=== PATIENT | male | born 1945 | race Caucasian/White ===

== ENCOUNTER 2017-11-29 22:01 | Inpatient (IN) | payer MEDICARE, OTHER ==
[~2017-11-29] VITALS: Ht 172.7 cm; Wt 87.2 kg
[~2017-11-29 22:01] MED LIST: ALLER-TEC10 MG PO; ASPIRIN EC325 MG PO; DAILY MULTIPLE1 EACH PO; FISH OIL 1,2001 EACH PO; LISINOPRIL2.5 MG PO; PERCOCET 7.5-31 EACH PO; TRIAMCINOLONE A15 GM TOP; VITAMIN D2000 UNI1 PO; VITAMIN K240 MCG PO; ZYRTEC10 M3 PO
[2017-11-29] MEDS ORDERED: MAGNESIUM400 M1 PO (22:17)
--- NOTE | 2017-11-30 01:07 | NUR ---
PT ADMITTED TO ROOM 115 FROM ED. HAS HAD MULT LOOSE RED STOOLS LIZ, COMPLAINS OF SOME CRAMPING, DENIES NAUSEA OR VOMITING. IS ON ROOM AIR, SBA WITH AMBULATION. HAS HAD ONE LOOSE STOOL SINCE ADMISSION, DARK-BLACK RED, LOOSE. VOIDING WITHOUT DIFFICULTY. DENIES DIZZINESS WHEN UP. PT EDUCATED TO USE CALL LIGHT TO GET UP. EDUCATED TO BED CONTROLS WELL. PT IS AWARE HE IS NPO.
--- NOTE | 2017-11-30 02:00 | NUR ---
PATIENT REQUEST ASSISTANCE TO GET UP TO THE BATHROOM. RN ASSISTED WITH IV POLE, PATIENT AMBULATED STEADILY WITHOUT ASSISTANCE. PATIENT HAD SMALL BM WHICH WAS NOT FORMED, WITH LARGE AMOUNT OF BLOOD. PATIENT REPORTS STOMACHE CRAMPING AND IS CONCERNED THAT THE BLEEDING IS FROM SOMETHING HE ATE. RN PROVIDED VERBAL EDUCATION ON GI BLEEDS AND REVIEWED AND INTERPRETED VITAL SIGNS AND LAB FINDINGS FOR PATIENT, WHICH WERE WNL. PATIENT'S IV FLUIDS INFUSING PER ORDER, SITE WNL. LUNGS ARE CLEAR. ABD IS SOFT, NONTENDER, WITH ACTIVE BOWEL SOUNDS. NO NAUSEA. NO EDEMA NOTED. PATIENT DENIES VOIDING ISSUES. WARM BLANKET PROVIDED. CALL LIGHT IN REACH.
--- NOTE | 2017-11-30 03:22 | NUR ---
PATIENT AMBULATED TO THE BATHROOM FOR A BM WITHOUT DIFFICULTY WITH HIS IV PUMP IN TOW. PATIENT VERY INDEPENDANT AND NOT WANTING A LOT OF HELP FROM THIS RN. PATIENT AMBULATED BACK TO BED AFTER HAVING A LIQUID BM AND IV PUMP PLUGGED BACK IN AND PATIENT IS GOING TO TRY AND GET SOME MORE SLEEP. CALL LIGHT IS IN REACH.PATIENT HAD A FAIRLY LARGE BLOODY LIQUID STOOL WITH A FEW HARD SOLID FORMED PIECES IN THE TOILET AND VOIDED 125MLS OF URINE IN THE URINAL.
--- NOTE | 2017-11-30 05:09 | NUR ---
PATIENT ARRIVED TO THE UNIT FROM THE ED FOR OBSERVATION. PATIENT HAS BEEN RESTING ON AND OFF. UP TO BATHROOM X3 FOR SMALL HARD STOOLS WITH LARGE AMOUNTS OF RED BLOOD. PATIENT DENIES DIZZINESS. HR RESTING IN 80'S AT REST, UP TO 130-160'S WHEN AMBULATING. OTHER VS STABLE. URINE OUTPUT QS. ABD CRAMPING OCCATIONALLY. SBA TO BATHROOM. IV FLUIDS PER ORDERS.
--- NOTE | 2017-11-30 05:19 | NUR ---
REVIEW ASSISTANT ASSISTED PATIENT TO THE BATHROOM. TELE RECORDED ELEVATED HR WITH AMBULATION, HR 130-160'S. HR RETURNED QUICKLY TO 80'S ONCE IN BED. VS STABLE. MD CONTACTED. ORDERS FOR LR BOLUS RECEIVED. VERIFIED VIA REPEAT BACK.
--- NOTE | 2017-11-30 08:09 | NUR ---
BEDSIDE REPORT RECEIVED FROM MAYE VANCE. WHITE BOARD ALREADY UPDATED BY AIDS. DR SALOMON IN TO ASSESS PATIENT. PROTONIX 40MG HELD PER MD ORDER SINCE 80MG WAS ADMINISTERED AT 2300. TELE [address] JACQUIE RED BLOOD NOTED IN TOILET AFTER PATIENT USED RESTROOM THIS MORNING. VOIDED INTO URINAL. AT BEDSIDE. CLEAR LIQUID DIET ORDERED.
--- NOTE | 2017-11-30 08:21 | NUR ---
REPORT RECIEVED FROM NOC COLUMBA VILLAVICENCIO RN. WHITE BOARD UPDATED, VERIFIED CORRECT IV FLUIDS ARE INFUSING. DR. SALOMON ASSESSING PATIENT DURING REPORT. AT BEDSIDE. CALL LIGHT WITHIN REACH, NO PAIN, POSSESSIONS NEARBY AND RESTING COMFORTABLY IN BED. WILL WAIT FOR NEW ORDERS FROM HOSPITALIST OR CONSULTING MD.
--- NOTE | 2017-11-30 09:38 | NUR ---
pt is resting in bed with call light in reach pt has been changed to clear liquid diet and asked for some ice water and chicken broth.
--- NOTE | 2017-11-30 10:45 | NUR ---
DR WATKINS WOULD LIKE A 2ND IV SITE. KATH AND BLADE RN EACH ATTEMPTED 2 IVs FOR A TOTAL OF 4 STICKS. UNABLE TO GET IV D/T VEINS BLOWING. WILL BRAINSTORM FURTHER OPTIONS TO DECREASE TRAUMA TO PATIENT'S VEINS. TOLERATING CARES WELL.
--- NOTE | 2017-11-30 13:30 | NUR ---
PT CALLED FOR ASSISTANCE TO THE BATHROOM. MARJORIE RN AND GILBERTO RN TO ROOM TO ASSIST PT. THIS RN ATTEMPTED TO GET BEDSIDE COMMODE FOR PT TO USE. PT SAID "I WANT TO JUST WALK INTO THE BATHROOM" PT STOOD AND STARTED WALKING, RN'S ASSITED PT AND I.V. POLE INTO BATHROOM. PT ASKED IF HE FEELS DIZZY, PT REPORTS "A LITTLE." PT SITTING ON BATHROOM TOILET REPORTS HE FEELS SICK, GILBERTO SENT TO CALL MD AND NOTIFY PRIMARY RN BLADE. PT THEN BECAME UNRESPONSIVE AND RIGID POSTURING EYES ROLLED BACK. GILBERTO RN AND THIS RN AND PADDOCK JUDGE IN ROOM ASSISTED PT GENTLY TO ASSISTED TO FLOOR PROTECTING HIS HEAD. THEN STAFF PULLED PT BY ARMS/SHOULDERS OUT OF BATHROOM TO BEDSIDE. MD IN ROOM, V/S TAKEN, CODE CART TO ROOM, GUSTAVO DURAN IN ROOM FOR CODE, OXYGEN APPLIED, V/S STABLE. PT ORIENTED TO ALL. REPORTS FEELING NAUSEA, ZOFRAN ADMINISTERED. PT THEN LIFTED TO BED WITH SLING/OVERHEAD LIFT, LABS ORDERED DRAWN AND SENT. PLAN TO TRANSFER PT TO ROOM 110 FOR CLOSER OBSERVATION.
--- NOTE | 2017-11-30 14:07 | NUR ---
AT 1330 GILBERTO RN ALERTED THIS RN THAT PATIENT WAS NOT DOING WELL AND THE CHARGE NURSE, WHO AT THIS TIME WAS IN THE ROOM WITH THIS PATIENT, WANTED THE DOCTOR TO BE CALLED FOR SHAKINESS, PALOR, AND DIZZINESS. THIS RN CALLED HOSPITALIST, AND AT THIS SAME TIME THE CODE BUTTON WAS PULLED AND ALARMING. PATIENT HAD VASOVAGAL EPISODE WHILE SITTING ON THE TOILET. ELVIE RN GRABBED CODE CART. JANNY CORTEZ GOT GLUCOMETER. MULTIDISCIPLINARY STAFF ARRIVED TO ROOM WITHIN 1 MINUTE OF CODE ALARM START. PATIENT WAS PULLED OUT OF BATHROOM BY GILBERTO & KATH RNs. VITAL SIGNS, LABS, OXYGEN, AND GLUCOSE WERE TAKEN IMMEDIATELY. PATIENT TURNED ONTO LEFT SIDE D/T REPORT OF NAUSEA. ZOFRAN ADMINISTERED. GLUCOSE 120 VIA FSBS. SEVERAL VITAL SIGNS TAKEN WHILE PATIENT RECOVERED FROM EPISODE. HOYERED PATIENT TO BED. 2L O2 VIA NC IN PLACE THROUGHOUT [place]. 3RD SET OF VITAL SIGNS TAKEN WHEN IN BED. VITAL SIGNS STABLE THROUGHOUT ENTIRE CODE. PATIENT REPORTS REMEMBERING "SHITTING ON THE TOILET" AND THEN WAKING UP TO "15 PEOPLE HOVERING OVER HIM". PATIENT MOVED TO ROOM 110 FOR CLOSER VIEW FROM NURSES STATION. 4TH SET OF VITAL SIGNS TAKEN. STABLE. 1L [address] NOW. SATURATING 98%. NS INFUSING AT 125 IN LEFT WRIST. SOME NAUSEA STILL REPORTED.
--- NOTE | 2017-11-30 14:08 | NUR ---
CALLED DR. WATKINS TO UPDATED HIM ON NEW H AND H. PATIENT CONTINUES TO REST ON HIS L SIDE. VITALS STABLE AT THIS TIME.
--- NOTE | 2017-11-30 15:28 | NUR ---
PT RESTING COMFORTABLY WITH EYES CLOSED. VSS. WARM BLANKET PROVIDED. DOOR CLOSED TO DIM SOUNDS AND CURTAIN MCC CLOSED FOR PRIVACY.
--- NOTE | 2017-11-30 17:22 | NUR ---
pt is currently in surgery, will do vitals upon return.
--- NOTE | 2017-11-30 17:55 | NUR ---
11/30/17 175 Yessica Durand 1741 PT ARRIVED TO PACU. [address]. BITE BLOCK IN PLACE. PT LAYING LEFT LATERAL. ABD SOFT. VITALS STABLE. 174 PT AWAKEN TO VOICE, BITE BLOCK REMOVED. POSITIVE FLATUS NOTED. PT REMAIN 99 ON 4L. 1754 02 DECREASED TO 3L VIA NC.
--- NOTE | 2017-11-30 18:27 | NUR ---
pt back to floor at 1820. pt awake and alert. transferred self over to bed.
--- NOTE | 2017-11-30 18:34 | NUR ---
PT ARRIVED TO FLOOR AT 1820. ALERT AND ORIENTED. AT BEDSIDE. HYPERACTIVE BOWEL TONES. POSITIVE FLATUS. COUGH OCCASIONAL D/T "HURRICANE SPRAY".
--- NOTE | 2017-11-30 18:42 | NUR ---
PATIENT HAS HAD SEVERAL LABS DRAWN TODAY. VASOVAGAL EPISODE IN BATHROOM AT 1330. CODE CALLED. PATIENT HAD EGD AND COLONOSCOPY THIS EVENING. VSS THROUGHOUT DAY. TELE [address] NO ABDOMINAL PAIN. 1-2PA TO BSC. MONITOR FOR LIGHTHEADEDNESS. SCDs ON.
--- NOTE | 2017-11-30 19:00 | NUR ---
SHIFT REPORT RECEIVED. PATIENT RETURNING TO BED FROM BS WITH 2PA FROM CNAS.
--- NOTE | 2017-11-30 19:48 | EKG ---
[facility] [address] [facility] [place] [address] Signed Normal sinus rhythm Nonspecific ST abnormality Abnormal ECG No previous ECGs available Confirmed by MARCELINO AGGARWAL MD ([id number]) on 11/30/2017 7:47:39 PM Electronically Signed By: MARCELINO AGGARWAL MD 11/30/171947 PATIENT NAME: ARSALAN HUTCHINSON Electrocardiogram DATE OF : 43 PHYSICIAN: MARCELINO AGGARWAL MD REPORT #: [id number] REPORT IS CONFIDENTIAL AND NOT TO BE RELEASED WITHOUT AUTHORIZATION
--- NOTE | 2017-11-30 19:49 | EKG ---
[facility] [address] [facility] [place] [address] Signed Normal sinus rhythm Normal ECG No previous ECGs available Confirmed by MARCELINO AGGARWAL MD ([id number]) on 11/30/2017 7:48:42 PM Electronically Signed By: MARCELINO AGGARWAL MD 11/30/17 194 PATIENT NAME: ARSALAN HUTCHINSON Electrocardiogram DATE OF : 43 PHYSICIAN: MARCELINO AGGARWAL MD REPORT #: [id number] REPORT IS CONFIDENTIAL AND NOT TO BE RELEASED WITHOUT AUTHORIZATION
--- NOTE | 2017-11-30 19:58 | NUR ---
SECOND SET OF POST OP VS DONE AT 1930, STABLE. PATIENT HAS ORDER FOR CBC LAB DRAW, LAB UNABLE TO DRAW AND THIS RN TRIED X1 WITH NO SUCESS. BUILDING MECHANIC CALLED TO ASSIST.
--- NOTE | 2017-11-30 20:30 | NUR ---
POST OP VITALS DONE 3/4. STABLE. PATIENT SAT UP TO EDGE OF BED TO USE URNAL WITHOUT DIZZINESS. PARTS EXPEDITER IN ROOM FOR LAB DRAW. PATIENT DENIES NEEDS.
--- NOTE | 2017-11-30 21:30 | NUR ---
LAST SET OF POST OP VS DONE, STABLE. PATIENT REPORTS HEARTBURN. NURSE INITIATED MALOX PROVIDED. PATIENT REQUEST TO GET UP TO THE BATHROOM. 2PA TO THE BATHROOM. PATIENT TOLERATED WELL, SLIGHTLY UNSTEADY. SMALL AMOUNT OF BLOOD NOTED, SIGNIFICANTLY LESS THAN LAST NIGHT AND EARLIER TODAY. PATIENT RETURNED TO BED. HE DENIES FEELING DIZZY, BUT HE IS WEAK. NO PAIN, OCCATIONAL ABD CRAMPS. URINE OUTPUT QS. ABD IS SOFT, AND NONTENDER. BOWEL SOUNDS ACTIVE. LUNG SOUNDS ARE CLEAR, DIMINISHED IN THE BASES. ENCOURAGE COUGH AND DEEP BREATH. TELE IN PLACE, HR IN THE 80'S AT REST. LOW 100'S WHEN OUT OF BED.
--- NOTE | 2017-12-01 02:15 | NUR ---
PATIENT CALLED TO REQUEST ASSISTANCE TO THE BATHROOM. HE VOIDED AND HAD A SMALL BM WITH SCANT BLOOD NOTICED. PATIENT APPEARS STEADY ON HIS FEET. HE STATES HE IS SORE FROM SITTING IN THE BED, REQUEST TO SIT IN RECLINER FOR A WHILE. ASSISTED HIM INTO THE RECLINER AND POSITIONED FOR COMFORT WITH WARM BLANKET. WATER, GLASSES, AND CALL LIGHT IN REACH. PATIENT DENIES ANY NEEDS. VS DONE, STABLE. PATIENT SLIGHTLY TACHYCARDIC AFTER AMBULATING, RETURNED TO 80'S AFTER A FEW MINS OF REST.
--- NOTE | 2017-12-01 05:15 | NUR ---
PATIENT UP TO THE BATHROOM. SMALL TO MODERATE AMOUNT OF BLOOD NOTED IN THE TOILET WITH STOOL. PATIENT IS CONCERNED. VS DONE, SYSTOLIC BP LOWER THAT PREVIOUS TIME. WILL REPORT TO MD. PATIENT RETURNED TO BED. REQUESTED TO HAVE REAL FOOD TODAY, WILL SPEAK WITH MD. OFFERED JETAVIAO AT THIS TIME WHICH HE ACCEPTED. NO OTHER NEEDS.
--- NOTE | 2017-12-01 06:39 | NUR ---
PATIENT SLEPT ON AND OFF THROUGHOUT THE NIGHT. HAD MULTIPLE SMALL STOOLS WITH SMALL AMOUNT OF BLOOD, THIS AM A MODERATE AMOUNT OF BLOOD NOTED. VS STABLE, SYSTOLIC BP IN LOW 100'S. PATIENT DENIES DIZZINESS WITH AMBULATION AND APPEARS STEADY. TELE 4; HR IN 80'S AT REST. LOW 100'S WITH AMBULATION. PATIENT TOLERATING CLEAR LIQUIDS, NO CRAMPING.
--- NOTE | 2017-12-01 06:53 | NUR ---
SPOKE TO ABOUT CONTINUED BLEEDING AND DIET ORDERS. PATIENT REQUESTING FOOD. DOCTOR REQUESTED HE STAY ON CLEARS AND BE TYPED AND CROSSED FOR TWO UNITS. PATIENT WAS TYPE & CROSSED UPON ADMISSION.
--- NOTE | 2017-12-01 09:07 | NUR ---
REPORT RECIEVED FROM MAYE VANCE DURING CHANGE OF SHIFT. PATIENT WAS LAYING IN BED IN GOOD SPIRITS VISTING WITH AT THE BEDSIDE. WHITE BOARD UPDATED. CALL LIGHT WITHIN REACH. NO COMPLAINTS AT THAT TIME. ROUNDED ON PATIENT FOR MORNING MEDICATIONS. PATIENT WAS SITTING IN BED COMFORTABLY. UP TO THE RESTROOM WITH SBA. GAIT IS STEADY AND DENIED DIZZINESS. SCDs PLACED. PATIENT IS USING ICE PACK FOR BACK PAIN. CLEAR LIQUID TRAY AT BEDSIDE. POSSESSIONS CLOSE BY. CALL LIGHT WITHIN REACH.
--- NOTE | 2017-12-01 10:03 | NUR ---
PATIENT WAS IN CHAIR, ASKED TO BE MOVED OVER TO BED, PATIENT'S VS ARE DONE, INTAKE AND OUTPUT RECORDED, PATIENT REQUESTED A COLD PACK FOR HIS STOMACH
--- NOTE | 2017-12-01 11:39 | NUR ---
ROUNDED ON PATIENT. LAYING IN BED COMFORTABLY WHILE TALKING ON THE PHONE. IV LINE USED FOR BLOOD ADMINISTRATION WAS ASSESSED AND INFUSING APPROPIATELY. WILL CONTINUE TO MONITOR.
--- NOTE | 2017-12-01 14:13 | NUR ---
pt resting in bed. pt needed nothing at this point. call light within reach.
--- NOTE | 2017-12-01 16:00 | NUR ---
WHILE ROUNDING ON PATIENT, IT WAS NOTICED THAT BLOOD HAD LEAKED FROM AROUND THE IV INSERTION SITE, IV WAS FLUSHED WITH 10 ML SYRINGE OF NS BY BLADE VANCE, IV WAS DETERMINED TO STILL BE PATENT AND FUNCTIONING PROPERLY. BLOOD ADMINISTRATION WAS CONTINUED. SECOND UNIT OF PACKED RBCs INFUSED, NO EVIDENCE OF REACTION, VITAL SIGNS ARE STABLE AND PATIENT APPEARS TO BE TOLERATING WELL. IV DRESSING CHANGED.
--- NOTE | 2017-12-01 16:29 | NUR ---
pt walked 2 full laps with stand by assist adrian Madrigal. pt then showered on his own. adrian madrigal and earle changed bed linen. pt then walked to chair and is sitting up waiting for dinner. call light within reach. pt needed no further assistance at this time.
--- NOTE | 2017-12-01 16:52 | NUR ---
1652: ROUNDED ON PATIENT AFTER GETTING REPORT FROM OLEOMARGARINE MAKER THAT PATIENT WAS HAVING SOME SOB AFTER TAKING A SHOWER AND WHILE SHAVING AT THE SINK. PATIENT WAS ASSESSED AND VITALS WERE TAKEN, VITALS STABLE. PATIENT REPORTED FEELING BETTER AFTER RESTING IN CHAIR. IV'S WERE ALSO ASSESSED FOR PATENCY AFTER REPORTS THAT THEY GOT WET IN THE SHOWER, NO DIFFICULTIES FLUSHING WITH 10 ML SYRINGE OF NS AND NO DISCOMFORT REPORTED BY PATIENT. 1730: NOW PATIENT IS RESTING COMFORTABLY IN BED WITH POSSESSIONS AT BEDSIDE, CELLPHONE IN HAND. DINNER AT BEDSIDE. SCDs PLACED AND ON. TELE ELECTRODES ADJUSTED. NO MORE COMPLAINTS OR NEEDS AT THIS TIME.
--- NOTE | 2017-12-01 18:02 | NUR ---
pt is resting in bed safely. call light in reach. pt has no further needs at this time.
--- NOTE | 2017-12-01 18:11 | NUR ---
PATIENT ALERT AND ORIENTED X 4. SBA. SCDs IN PLACE. SALINE LOCKED. CLEAR LIQUID DIET. TELE MONITOR 4. SHOWERED THIS EVENING. FREQUENCY OF BLOODY STOOLS HAVE DECREASED. MORNING HEMOGLOBIN IMPROVED FROM 8.4 TO 10.6 AFTER INFUSION OF 2 UNITS OF PACKED RBCs. PATIENT TOLERATED INFUSION WELL WITH NO SIGN OF REACTION. PRN TYLENOL AND MAALOX AVALIABLE.
--- NOTE | 2017-12-01 18:39 | NUR ---
Medications reconciled with patient interview. Patient takes several vitamin/supplements. Only RX medication is trimacinolone cream for hands
[2017-12-01] MEDS ORDERED: TRIAMCINOLONE A15 G2 TOP (18:41)
[2017-12-01] MEDS ORDERED: PROBIOTIC1 EAC3 PO (18:41)
--- NOTE | 2017-12-01 19:20 | NUR ---
RECIEVED REPORT FROM RAJIV SALEEM. PT ON TELE 4, SINUS RHYTHM. PT IS UP TO RESTROOM WITH A SBA. PT IS ON A CLEAR LIQUID DIET. IV SITES ARE SALINE LOCKED. REQUESTS TO WALK TONIGHT. NO FURTHER COMPLAINTS AT THIS TIME, RESTING IN BED.
--- NOTE | 2017-12-01 21:00 | NUR ---
ROUNDED CHARGE. PATIENT IS RESTING IN BED WATCHING TV. PATIENT DENIES ANY NEEDS AT THIS TIME. CALL LIGHT IN REACH.
--- NOTE | 2017-12-01 21:26 | NUR ---
ASSESSMENT COMPLETE. ACTIVE BOWEL TONES, NO ABD TENDERNESS. IVS FLUSHED AND SALINE LOCKED. LUNG SOUNDS CLEAR. SCD'S ON AND CALL LIGHT IN HAND. NO FURTHER REQUESTS AT THIS TIME.
--- NOTE | 2017-12-01 21:27 | NUR ---
PT ASSESSMENT COMPLETE. BOWEL TONES HYPERACTIVE X 4, ABD SOFT, NON-TENDER W PALPATION. PT DENIES PAIN. LUNGS CLEAR THROUGHOUT ALL LOBES. ON TELE 4 HR REGULAR RHYTHM. CSM INTACT BUE, BLE, SCDS IN PLACE. IV SITES SALINE LOCKED WNL. CALL LIGHT IN REACH.
--- NOTE | 2017-12-01 23:00 | NUR ---
PT REQUESTED TO AMBULATE AVILA. STAND BY ASSIST WITH DIEGO ALEX. PT TOLERATED WELL. PT RETURNED TO BED.
--- NOTE | 2017-12-02 00:49 | NUR ---
RESPONDED TO PT CALL LIGHT. PT REQUESTED TO TAKE OFF SCD'S SO HE COULD SLEEP. PT STOOD AT SIDE OF BED AND STRETCHED, STATING HE IS FEELING MUCH BETTER. PT IS BACK TO BED WITH CALL LIGHT IN REACH.
--- NOTE | 2017-12-02 02:22 | NUR ---
PT SLEEPING ON SIDE IN BED. BREATHING UNLABORED. CALL LIGHT IN REACH.
--- NOTE | 2017-12-02 03:06 | NUR ---
ASSESSMENT COMPLETED. UP TO RESTROOM, ONE PERSON STAND BY ASSIST WITH VOID. PT EDUCATED TO USE URINAL FOR FUTURE VOIDS. LUNG SOUNDS CLEAR. ACTIVE BOWEL TONES, NO ABD TENDERNESS, PT STATES HE IS PASSING GAS AND IS LESS DISTENDED. PT REFUSES TO USE SCD'S AT THIS TIME. CALL LIGHT IN REACH.
--- NOTE | 2017-12-02 04:27 | NUR ---
CALL LIGHT ANSWERED, SBA TO RESTROOM FOR VOID AND BM, SMALL CLOT DARK RED. SBA BACK TO BED, DIEGO ALEX IN ROOM FOR VITALS. SINUS RHYTHM HR 78 ON TELE 4.
--- NOTE | 2017-12-02 05:01 | NUR ---
PT AMBULATED ONCE WITH SBA IN HALLWAY. DECREASING AMOUNT OF BLOOD IN STOOL THROUGHOUT THE NIGHT. CLEAR LIQUID DIET. PT REFUSED SCD'S OVERNIGHT. IV SALINE LOCKED. TELE MONITOR 4, SINUS RHYTHM.
--- NOTE | 2017-12-02 08:30 | NUR ---
PATIENT UP IN CHAIR. AM CARE AND SHOWER REFUSED BY PATIENT. LINENS CHANGED. PATIENT CURRENTLY EATING BREAKFAST. CALL LIGHT IN REACH. NO FURTHER NEEDS AT THIS TIME.
--- NOTE | 2017-12-02 09:00 | NUR ---
PT IS SITTING UP IN RECLINER AWAKE VISITING WITH . PT DENIES ANY PROBELEMS, OR CONCERNS THIS AM, DENIES PAIN OR NAUSEA. PT EXPRESSES INTEREST IN EATING THIS MORNING. REPORTS THAT FREQUENCY OF STOOL HAS SIGNIFICANTLY DECREASED WELL AMOUNT OF BLOOD IN STOOL, STATES THERE IS STILL SOME BLOOD PRESENT THOUGH. ASSESSMENT COMPLETED. IV'S BOTH FLUSH WELL AND DRESSINGS INTACT. CALL LIGHT WITHIN REACH.
--- NOTE | 2017-12-02 09:27 | OR ---
[facility] [address] [facility] [place] [address] Signed DATE OF OPERATION: 11/30/2017 SURGEON: Jacobo Watkins MD PREOPERATIVE DIAGNOSES: 1. Hematochezia, persistent. 2. Known history of diverticulosis and history of polyp 2012. POSTOPERATIVE DIAGNOSES: 1. Normal upper endoscopy. 2. Profound diverticular changes throughout colon, bleeding most likely left and sigmoid colon areas. PROCEDURE: 1. Esophagogastroduodenoscopy. 2. Total colonoscopy to cecum with hemostatic control with hemoclips x3 with lavage of colon. ANESTHESIA: Intravenous sedation. ANESTHESIOLOGIST: Divya Sanchez CRNA INDICATION: A 72-year-old white male, a patient of Dr. Houston, admitted through the emergency room in the blurb writer hours, having had several episodes of hematochezia. He had no hematemesis or epigastric pain. I was consulted on him earlier this morning and plans made for colonoscopy after bowel prep. His hematocrit dropped from an initial 42 to 30 and stable 32 hours later at approximately 1:30 p.m. He did have a syncopal episode during the course of his bowel movement from a bowel prep. On that basis, I have expedited his examination to this time. The risks of bleeding, infection, perforation, and so forth were reviewed with him. He understands and wished to proceed. Notably, he underwent colonoscopy by me in 2012, at which time he had diverticulosis, as well as a polyp that was resected. Electronically Signed By: JACOBO WATKINS MD 12/02/17 0927 PATIENT NAME: ARSALAN HUTCHINSON OPERATIVE REPORT DATE OF : 43 REPORT #: [id number] PHYSICIAN: JACOBO WATKINS MD PCP: AYANA HOUSTON DO REPORT IS CONFIDENTIAL AND NOT TO BE RELEASED WITHOUT AUTHORIZATION [facility] [address] [place], [place] [address] Signed FINDINGS: Upper endoscopy was normal except for a hiatal hernia. There was certainly no lesion to account for bleeding and certainly no blood. On colonoscopy, he still had some dark red bloody material most dominantly in the rectum, sigmoid, and left colon, but complete colonoscopy was undertaken to the cecum itself. There was minimal if any blood in the transverse and right colon. All of it back washed type bleeding probably. Careful inspection from proximal to distal was undertaken with copious irrigation. There were numerous large diverticula throughout the colon, but most dominantly in the mid descending and sigmoid colon. Several of the diverticula appeared to have diverticula within the diverticula. Although, there was no gushing blood, or obvious focus of blood bleeding in any way. Three separate diverticula were suspicious for having had recent bleeding and these were secured with hemoclips. At conclusion there is no known ongoing bleeding and the colon is largely free of blood. PROCEDURE: The patient brought to the endoscopy suite given topical Hurricaine spray hypopharyngeal anesthesia and placed in lateral decubitus position. He was given intravenous sedation with propofol infusional technique by the line analyst with full cardiopulmonary monitoring. A bite block was placed. The Olympus video upper endoscope was passed by hypopharynx into the esophagus. The esophagus, stomach, and duodenum were expeditiously evaluated showing no sign of blood. No sign of lesion or clot. Retroflexed view did confirm a moderate-sized hiatal hernia. The scope was straightened, withdrawn to the distal esophagus, which was normal. There were no varices or other abnormalities. The scope was then removed. Plans were then made for focus on colonoscopy as to the source of lower GI bleeding. Digital rectal examination was found to be normal. An Olympus video colonoscope was passed in the rectum and some gelatinous type bloody material was noted. Irrigation was undertaken with usual care and caution. The scope manipulated throughout the rectosigmoid in the left colon where numerous diverticula were noted. Irrigation was undertaken as necessary to allow for passage of the scope. Beyond the splenic flexure certainly there was not too much blood and by the mid transverse and right colon, essentially no blood particularly. Irrigation was undertaken nevertheless, and careful withdrawal of scope did affirm diverticula in small amounts in the right colon and transverse colon. Splenic flexure was reasonably free, and certainly showed no sign of ongoing bleeding in the diverticula examined. Careful withdrawal of scope with copious irrigation and suctioning allowed for inspection of the diverticula as the scope was Electronically Signed By: JACOBO WATKINS MD 12/02/17 0927 PATIENT NAME: ARSALAN HUTCHINSON OPERATIVE REPORT DATE OF : 43 REPORT #: [id number] PHYSICIAN: JACOBO WATKINS MD PCP: AYANA HOUSTON DO REPORT IS CONFIDENTIAL AND NOT TO BE RELEASED WITHOUT AUTHORIZATION [address] [address] Signed withdrawn. In virtually all of the areas, there was no sign of active bleeding. In the mid descending colon, there was a bit more brightness to the blood, though no active spurting or huge amounts of clotting blood or anything of that sort. Irrigation was undertaken and at about 70-80 cm there was a diverticulum that seemed to have diverticula within it. This had more fresh blood, and some clot, and was deemed a possible site and on that basis, a hemoclip was applied carefully within the lumen of the diverticulum. Irrigation was undertaken. The scope withdrawn further and other diverticula noticed. Two other diverticula with a similar appearance to that of the initial one for bleeding were additionally identified as high risk for bleeding, and were hemoclipped. Careful withdrawal of scope and irrigation showed no sign of ongoing bleeding elsewhere. The rectum was normal. Retroflexed view was normal. He did have hemorrhoids none of which were bleeding. The scope was then removed. The patient was taken to recovery room in good condition. CONCLUDING DIAGNOSIS: Almost certainly gastrointestinal bleeding related to diverticulosis most dominantly left colon and sigmoid. Although there are diverticula of the transverse and right colon, I think it unlikely that these would be the source of bleeding. PLAN: He will be allowed clear liquids and careful monitoring. We are hopeful and optimistic that he has no further bleeding at this point. MD TJ Bhandari/RIGOBERTO /[id number] cc: DO Nancy Soto MD Copies: AYANA HOUSTON DO Electronically Signed By: JACOBO WATKINS MD 12/02/17 0927 PATIENT NAME: ARSALAN HUTCHINSON OPERATIVE REPORT DATE OF : 43 REPORT #: [id number] PHYSICIAN: JACOBO WATKINS MD PCP: AYANA HOUSTON DO REPORT IS CONFIDENTIAL AND NOT TO BE RELEASED WITHOUT AUTHORIZATION [address] [address] Signed NANCY SALOMON DO ~ Electronically Signed By: JACOBO WATKINS MD 12/02/17 0927 PATIENT NAME: ARSALAN HUTCHINSON OPERATIVE REPORT DATE OF : 43 REPORT #: [id number] PHYSICIAN: JACOBO WATKINS MD PCP: AYANA HOUSTON DO REPORT IS CONFIDENTIAL AND NOT TO BE RELEASED WITHOUT AUTHORIZATION
--- NOTE | 2017-12-02 09:27 | CONS ---
[facility] [address] [place], [place] [address] Signed DATE OF CONSULTATION: 11/29/2017 CONSULTING PHYSICIAN: Jacobo Watkins MD PROBLEM: Hematochezia. HISTORY: This 72-year-old white man is known to me from the past, having undergone colonoscopy in 2012, where he was noted to have an adenoma as well as multiple diverticula. In the manager oncology hours, he began having blood per rectum. He initially thought this was related to food that he ate possibly tomatoes and cherries and so forth. He presented to the emergency room, where he was evaluated by Dr. Raymond, found to have a normal hematocrit, but did have some orthostatic clinical symptoms. He was admitted by Dr. Yates to the regular nursing floor where he has had continued dark rectal bleeding. He has had no associated hematemesis and denies any dysphagia or epigastric pain. He has had some crampy lower abdominal pain. He has never had a GI bleeding episode in the past. In general terms he is in reasonable health for his age. PAST MEDICAL HISTORY: Significant for known diverticulosis as described. He does drink alcohol on a daily basis. MEDICATIONS: Include aspirin, vitamin D3, fish oil, vitamin K, multivitamin, and magnesium oxide. SOCIAL HISTORY: He is , lives in [place]. He does not smoke. He is retired. REVIEW OF SYSTEMS: He denies any chest pain. He has had no shortness of breath or dysphagia or hematemesis. Has lower abdominal pain. No upper abdominal pain. He has had previously some right lateral abdominal wall pain, which he thought improved with initiation of a Agusto Chi regimen. PHYSICAL EXAMINATION: GENERAL: Pleasant white man, who does not look diaphoretic or particularly troubled at this moment. Electronically Signed By: JACOBO WATKINS MD 12/02/17 0927 PATIENT NAME: ARSALAN HUTCHINSON CONSULTATION DATE OF : 43 REPORT #: [id number] PHYSICIAN: JACOBO WATKINS MD PCP: AYANA HOUSTON DO REPORT IS CONFIDENTIAL AND NOT TO BE RELEASED WITHOUT AUTHORIZATION [facility] [address] [place], [place] [address] Signed NECK: His trachea is midline. Mucous membranes reasonably moist. CHEST: Clear. HEART: Regular. I detect no murmur or heart irregularity at this time. ABDOMEN: Nondistended and soft. There is no focal mass or tenderness. There is no ascites. EXTREMITIES: Show no clubbing, cyanosis, or edema. LABORATORY STUDIES: Reviewed show initial hematocrit of 42.3, subsequently at approximately 6 a.m. 33.5. His white count is 8.4, currently platelet count 208,000. His INR is normal at 0.9. His Chem profile normal. Liver enzymes are normal as well. Creatinine is 0.79 this morning, previously 0.95. ASSESSMENT: would be considered hematochezia. He is known to have diverticulosis from the past. The probability is high, this represents a lower gastrointestinal bleed though given its dark nature, the possibility of upper GI bleed remains though unlikely. I have discussed with Dr. Yates a plan for colonoscopy. Bowel preparation will be undertaken today. If continued bleeding is noted, colonoscopy should be done today, but if things settle as generally they would anticipate colonoscopy tomorrow after a reasonable bowel prep. The risks of bleeding, infection, and perforation related to colonoscopy was reviewed in detail. I would consider that if a lower gastrointestinal source is not discovered or reasonably expected, then upper endoscopy might be a consideration as well. MD TJ Bhandari/MODL /[id number] cc: MD Amira Cook MD Copies: NANCY YATES DO Electronically Signed By: JACOBO WATKINS MD 12/02/17 0927 PATIENT NAME: ARSALAN HUTCHINSON CONSULTATION DATE OF : 43 REPORT #: [id number] PHYSICIAN: JACOBO WATKINS MD PCP: AYANA HOUSTON DO REPORT IS CONFIDENTIAL AND NOT TO BE RELEASED WITHOUT AUTHORIZATION [facility] [address] [facility] [place] [address] Signed AMIRA RAYMOND MD ~ Electronically Signed By: JACOBO WATKINS MD 12/02/17 0927 PATIENT NAME: ARSALAN HUTCHINSON CONSULTATION DATE OF : 43 REPORT #: [id number] PHYSICIAN: JACOBO WATKINS MD PCP: AYANA HOUSTON DO REPORT IS CONFIDENTIAL AND NOT TO BE RELEASED WITHOUT AUTHORIZATION
--- NOTE | 2017-12-02 09:45 | NUR ---
PATIENT AN AQUAINTANCE OF MINE OUTSIDE OF THE HOSPITAL. HE IS ASKING FOR MY ASSISTANCE WITH FOOD SELECTION. HE HAS HISTORY OF DIVERICULOSIS. NORMALLY EATS A HIGH FIBER DIET WITH FRUITS, SOME VEGETABLES, JULIANN'S KILLER BREAD, OATMEAL, ETC. HE IS NOW ON A LOW-FIBER DIET. HIS , ELI, HAD A LIST OF LOW-FIBER FOODS ALREADY. WE REVIEWED THE LIST. I REMINDED THEM IT IS ONLY TEMPORARY DR. WATKINS EXPLAINED. HELPED HIM ORDER EGGS AND HASH BROWNS FOR BREAKFAST. NO OTHER QUESTIONS OR CONCERNS AT THIS TIME. HE WILL DO WELL. I AM AVAILABLE FOR OTHER DIET RELATED ISSUES IF THEY ARISE.
--- NOTE | 2017-12-02 09:49 | NUR ---
PT GIVEN EDUCATION ON LOW-FIBER DIET PACKET GIVEN, RODRIGUEZ DIET CONSULT WAS IN TO PT ROOM TO EDUCATE WELL.
--- NOTE | 2017-12-02 10:33 | NUR ---
DIET ADVANCED TO LOW FIBER. PT HAD HASHBROWN AND SCRAMBLED EGGS. MARS WELL SO FAR, DENIES ANY ABD DISCOMFORT, PAIN, OR NAUSEA. SITTING UP IN RECLINER, CALL LIGHT WITHIN REACH.
[2017-12-02] MEDS ORDERED: PANTOPRAZOLE SO40 MG PO (12:55)
--- NOTE | 2017-12-02 13:00 | NUR ---
PT INDEPENDENT IN ROOM. DENIES FURTHER BM THIS SHIFT. STATES "I'M FEELING REALLY GOOD." CALL LIGHT WITHIN REACH.
--- NOTE | 2017-12-02 13:55 | NUR ---
PATIENT UP FROM BED TO AMBULATE IN HALLWAY WITH SBA. PATIENT CURRENTLY BACK TO BED. CALL LIGHT IN REACH. NO FURTHER NEEDS AT THIS TIME.
--- NOTE | 2017-12-02 14:05 | NUR ---
PT RESTING IN BED, ALERT AND ORIENTED. HE MENTIONED THAT HE PLANS ON DC, BUT WASN'T GOING TO GET CLOTHES ON UNTIL HE SAW THE PAPER WORK! MUCH IMPROVED, PLEASANT VISIT, PT REQUESTED PRAYER-WILL FOLLOW NEEDED
--- NOTE | 2017-12-02 15:20 | NUR ---
PT INDEPENDENT IN ROOM. WATCHING TV AT THIS TIME. DENIES NEEDS OR CONCERNS. AMB IN HALLWAY WITHOUT DIFFICULTY. CALL LIGHT WITHIN REACH.
== END 2017-12-02 16:37 | disposition home or self-care (01) | DRG 378 ==
LOC: ED 22:01 → MS 22:03
PROVIDERS: Surgery; ADMIT Student in an Organized Health Care Education/Training Program
PROC: 0W3P8ZZ Control Bleeding in Gastrointestinal Tract, Via Natural or Artificial Opening Endoscopic (ICD-10-PCS; principal; 2017-11-30 16:26)
PROC: 0DJ08ZZ Inspection of Upper Intestinal Tract, Via Natural or Artificial Opening Endoscopic (ICD-10-PCS; 2017-11-30 16:26)
DX: K92.2 Gastrointestinal hemorrhage, unspecified (principal); D62 Acute posthemorrhagic anemia; G43.809 Other migraine, not intractable, without status migrainosus
CPT/HCPCS: 36415; 80048; 80053; 84484; 85018; 85025; 85610; 85730; 86850; 86900; 86901; 86920; 93005; 93010; 96374; 99284; J2405; J2704; J3480; J7030; J7120; P9016

== ENCOUNTER 2017-12-03 18:15 | Inpatient (IN) | payer MEDICARE, OTHER ==
[~2017-12-03] VITALS: Ht 172.7 cm; Wt 84.6 kg
--- NOTE | ~2017-12-03 | OR ---
[facility] [address] [place], [place] [address] Draft DATE OF OPERATION: 12/05/2017 SURGEON: Jacobo Watkins MD PREOPERATIVE DIAGNOSES: 1. Recurrent lower gastrointestinal bleeding. 2. Extensive diverticulosis. 3. Recent tagged red cell scan suggestive of right transverse colon bleeding source. POSTOPERATIVE DIAGNOSES: 1. No evidence of active bleeding. Diverticulosis throughout the entire colon. 2. Fresh clot in one diverticulum of proximal sigmoid colon, irrigated and secured with hemoclips. PROCEDURE: Total colonoscopy to cecum with hemorrhagic control with hemoclip. ANESTHESIA: Intravenous sedation propofol infusion; Bernabe Patel CRNA. INDICATION: This 72-year-old white man was readmitted to the hospital by Dr. Munson on December 03, 2017, discharged the day before having had a lower gastrointestinal bleed related to diverticulosis. He had undergone upper endoscopy and colonoscopy by me at that time and application of hemoclips in 3 different diverticula of the sigmoid and left colon thought likely to be the source of the bleeding. When he went home, he was really not bleeding to any extent. He was tolerating a low-fiber diet. He presented again with increased bleeding on December 03 and was readmitted by Dr. Munson. His hematocrit was as low as 22, and he was transfused to hematocrit of 27 with 2 units of packed red cells. I was reconsulted and yesterday recommended a tagged red cell scan, which was performed and interpreted by Dr. Mauricio showing what appeared to be origination of the bleeding in the right transverse colon. I had expected that it would be in the sigmoid or left colon based on colonoscopic findings previously. I offered last night that subtotal colectomy be undertaken as he was having ongoing bleeding once again that versus transfer to another institution for angiographic embolization possibly. He declined both of those options. He thought that surgery would be "too radical" and they did not want the transport expanse of transfer to PATIENT NAME: ARSALAN HUTCHINSON OPERATIVE REPORT DATE OF : 43 REPORT #: [id number] PHYSICIAN: JACOBO WATKINS MD PCP: AYANA HOUSTON DO REPORT IS CONFIDENTIAL AND NOT TO BE RELEASED WITHOUT AUTHORIZATION [facility] [address] [place], [place] [address] Draft another [facility]. As a compromise, I have recommended repeat colonoscopy. He has undergone repeat bowel prep in the intensive care unit overnight and did have some blood that came through, but not too much and hematocrit is now stable at 25, it appears. He understands the risks of bleeding, infection, perforation related to colonoscopy and wished to proceed. FINDINGS: Diverticula were once again seen extending from the sigmoid to the cecum. There was no sign of active bleeding. The prep was quite good. There was far less blood than at previous colonoscopy. Special evaluation through the right transverse colon and elsewhere confirmed diverticula, but no sign of bleeding from any of them nor sign of arteriovenous malformation, neoplasm, or other problem. There was one diverticulum in the proximal sigmoid area that seemed to have fresh clot within it, which was irrigated and application of hemoclips applied and this showed no sign of ongoing bleeding and it is uncertain if this may have been source of bleeding in fact probably not. In any case, he is not having active bleeding at this time and remained hemodynamically stable throughout the procedure. DESCRIPTION OF PROCEDURE: The patient was brought to the operating room and endoscopy equipment set up there in the lateral decubitus position left side down. He was given intravenous sedation by the government employee with full cardiopulmonary monitoring. Digital rectal examination was performed showing no neoplasm. He did have some relatively old blood noted. An Olympus video colonoscope was passed in the rectum and minimal drained like clots were irrigated and the scope manipulated throughout the colon. Numerous diverticula were immediately noted in the distal sigmoid and the scope was manipulated throughout the colon using irrigation as necessary ultimately intubating the right colon. The ileocecal valve was normal. Attempts to intubate it were unsuccessful, but the cecum appeared normal. Scope was withdrawn from that point and careful withdrawal of the scope showed numerous diverticula of the right colon, as well as in the region of the hepatic flexure. Careful inspection in particular through the transverse colon was undertaken. Multiple passes of the scope forward and backward ultimately to the cecum and to the splenic flexure. Again seen, no sign of arterial venous malformation only diverticulosis, but no sign of active bleeding or even clot within the diverticula. The scope was then withdrawn a bit further. Further withdrawal of scope to the left colon showed diverticulosis only old blood and some of the diverticula. One of the diverticula in the proximal sigmoid showed somewhat fresh clot. This was irrigated free and although it showed no sign of active bleeding various manipulations. Two hemoclips PATIENT NAME: ARSALAN HUTCHINSON OPERATIVE REPORT DATE OF : 43 REPORT #: [id number] PHYSICIAN: JACOBO WATKINS MD PCP: AYANA HOUSTON DO REPORT IS CONFIDENTIAL AND NOT TO BE RELEASED WITHOUT AUTHORIZATION [address] [address] Draft were applied to the internal lumen of the diverticulum. To my surprise, this allowed for complete clearance of the clot like blood in the sigmoidal diverticulum. Irrigation was undertaken fully and this was a durable finding. The scope was further withdrawn, demonstrated other diverticula. The rectum appeared normal. Retroflexed view did show internal hemorrhoids, none of the bleeding. The scope was removed. The patient was taken to recovery in good condition. CONCLUDING DIAGNOSIS: Multiple diverticula, very likely source of bleeding. No sign of active bleeding at this time. PLAN: Expectant management given his limitations of intervention at present that he will allow for. Continued monitoring would be appropriate. We will obtain a KUB to ascertain the location of the clips already applied from previous colonoscopy and today's colonoscopy. MD TJ Bhandari/RIGOBERTO /[id number] cc: MD Cara White MD Arian Kargar, DO Nancy Yates MD Copies: MARCELINO AGGARWAL MD, CYNTHIA MD KARGAR, ARIAN DO PATIENT NAME: ARSALAN HUTCHINSON OPERATIVE REPORT DATE OF : 43 REPORT #: [id number] PHYSICIAN: JACOBO WATKINS MD PCP: AYANA HOUSTON DO REPORT IS CONFIDENTIAL AND NOT TO BE RELEASED WITHOUT AUTHORIZATION [facility] [address] [facility] [place], [place] [address] Draft NANCY YATES DO ~ PATIENT NAME: ARSALAN HUTCHINSON OPERATIVE REPORT DATE OF : 43 REPORT #: [id number] PHYSICIAN: JACOBO WATKINS MD PCP: AYANA HOUSTON DO REPORT IS CONFIDENTIAL AND NOT TO BE RELEASED WITHOUT AUTHORIZATION
[~2017-12-03 18:15] MED LIST changes: +MAGNESIUM400 M1 PO; +PANTOPRAZOLE SO40 MG PO; +PROBIOTIC1 EAC3 PO; +TRIAMCINOLONE A15 G2 TOP
--- NOTE | 2017-12-03 19:15 | NUR ---
RECEIVED REPORT FROM DAY SHIFT RN. PATIENT IS RESTING IN BED. NO NEEDS NOTED AT THIS TIME. CALL LIGHT IN REACH.
--- NOTE | 2017-12-03 20:15 | NUR ---
PATIENT ASSESMENT COMPLETED. PATIENT PLACED ON TELE #8 PER ORDER. PATIENTS EVENING MEDICATIONS GIVEN PER ORDER. PATIENT HAS IV FLUIDS INFUSING PER ORDER. PATIENT EDUCATED ON BEING NPO. PATIENT VERBALIZES UNDERSTANDING. PATIENT DENIES ANY PAIN OR NAUSEA. NO FURTHER NEEDS NOTED. CALL LIGHT IN REACH.
--- NOTE | 2017-12-03 21:30 | NUR ---
PATIENT UP TO BSC. PATIENT IS A SBA. PATIENT HAD A LARGE LOOSE BLOODY BM. REPORTED TO MD. NO NEW ORDERS AT THIS TIME. BLOOD CONSENT SIGNED. CALLED LAB TO MAKE SURE THEY HAVE 2 UNITS AVAILABLE TO INFUSE IF NEEDED PER MD ORDER. PATIENT DENIES ANY PAIN OR NAUSEA. NO NEEDS NOTED. CALL LIGHT IN REACH.
--- NOTE | 2017-12-03 23:35 | NUR ---
PATIENT PROVIDED WITH MOUTH SWABS FOR DRY MOUTH. PATIENT DENIES ANY FURTHER NEEDS CALL LIGHT IN REACH.
--- NOTE | 2017-12-04 00:34 | NUR ---
1PA TO BEDSIDE COMMODE AND BACK TO BED. VOIDED WITH NO RED COLOR.
--- NOTE | 2017-12-04 00:45 | NUR ---
OCCUPATIONAL THERAPY ASSISTANT ASSISTED PATIENT TO THE BSC. PATIENT VOIDED. NO BM NOTED. PATIENT DENIES ANY PAIN OR NAUSEA. NO FURTHER NEEDS NOTED. CALL LIGHT IN REACH.
--- NOTE | 2017-12-04 02:19 | NUR ---
PATIENTS VITALS TAKEN AND RECORDED WITH FIELD ATTENDANT. NO NEEDS NOTED. CALL LIGHT IN REACH.
--- NOTE | 2017-12-04 03:41 | NUR ---
ASSISTED PATIENT TO USE THE BEDSIDE COMMODE. PATIENT HAD SIGNIFICANT AMOUNT OF VOIDINGS AND HAD BOWEL MOVEMENT WITH DARK RED COLOR. RAJIV CROOKS NOTIFIED AND CHECKED BEFORE DUMPING/FLUSHING. PATIENT IS BACK IN BED. RAJIV CROOKS WAS WITH PATIENT.
--- NOTE | 2017-12-04 04:00 | NUR ---
PATIENT HAD ANOTHER BLOODY BM. PATIENT DENIES ANY PAIN OR NAUSEA. PATIENT DENIES BEING DIZZY OR LIGHTHEADED. PATIENT IS BACK IN BED RESTING. TELE #8, NSR, HR 83. ICE PACK PROVIDED FOR PATIENTS NECK. NO FURTHER NEEDS NOTED. CALL LIGHT IN REACH.
--- NOTE | 2017-12-04 05:41 | NUR ---
PATIENTS VITALS TAKEN AND RECORDED. PATIENT UP TO [facility] AND HAD SMALL, LOOSE, BLOODY BM. PATIENT COMPLAINS OF PAIN IN MID RIGHT QUADRANT. PATIENT PROVIDED WARM PACK. RIGHT MID QUADRANT TENDER TO PALPATION. PATIENT DENIES ANY NAUSEA. PATIENT EXPRESSES CONCERN ABOUT BMS, DIAGNOSIS, AND HEALTH IN GENERAL. PROVIDED REASSURANCE. PATIENT DENIES ANY FURTHER NEEDS AT THIS TIME. CALL LIGHT IN REACH.
--- NOTE | 2017-12-04 05:55 | NUR ---
PATIENT RESTED WELL THROUGHOUT THE SHIFT. PATIENT IS NPO AT THIS TIME. PATIENT IS ON TELE #8, NSR, HR IN THE 80-90S. PATIENT IS A SBA AND IS STEADY ON HIS FEET. PATIENT IS ON BEDREST AND USES THE BSC AT THIS TIME. PATIENT HAS IV FLUIDS INFUSING. PATIENT DENIES ANY NAUSEA. PATIENTS URINE OUTPUT IS QS. PATIENT HAD X3 BLOODY BMS. PATIENT IS AAO X3. PATIENT COMPLAINS OF MILD PAIN IN RIGHT MID QUADRANT. WARM PACK PROVIDED.
--- NOTE | 2017-12-04 10:01 | NUR ---
0940 RECIEVED BLOOD FROM LAB AT 0930. VERIFIED THE BLOOD BAG WITH URBANO FRANCISCO IN THE LABORATORY. 2ND CROSS CHECK WAS CONDUCTED BY BLADE RN, SEVEN RN, AND SEAN VANCE AT PATIENTS BEDSIDE. VITAL SIGNS STABLE. INFUSION STARTED AT 0951. PATIENT ASSESSMENT CONDUCTED. PATIENT REPORTED FEELING "CLOUDY" AND "WHOOZY".
--- NOTE | 2017-12-04 10:16 | NUR ---
PATIENT UP TO BSC, WITH HELP FROM BLADE VANCE. PATIENT REPORTED BEING LIGHTHEADED AND DIZZY, POSITIONED SAFELY BACK INTO BED. BLOOD INFUSION INCREASED TO 150 ML/HR. WILL CONTINUE TO MONITOR.
--- NOTE | 2017-12-04 10:28 | NUR ---
VS AND I&O'S TAKEN AND DOCUMENTED. WARM WASH CLOTH GIVEN AND ORAL CARE DONE. DIEGO NAIDU, ASSISTED WITH PT CARE. PT STATED HE WOULD LIKE TO WAIT ON A BED BATH AND SEE HOW HE FEELS LATER. WILL CHECK BACK WITH PT. CALL LIGHT IS IN REACH.
--- NOTE | 2017-12-04 10:57 | NUR ---
Medications reconciled using pharmacy records and patient interview
--- NOTE | 2017-12-04 14:20 | NUR ---
PATIENT HAS RETURNED TO THE FLOOR AFTER IMAGING PROCEDURE. USING BEDSIDE COMMODE, WITH HELP FROM RNs. PREPARING FOR 2ND UNIT OF BLOOD.
--- NOTE | 2017-12-04 15:09 | NUR ---
PATIENT RESTING COMFORTABLY IN BED. POSSESSIONS AT BEDSIDE. BLOOD ADMINISTRATION STARTED AT 1448. INFUSION RATE INCREASED TO 150 ML/HR. WILL CONTINUE TO MONITOR.
--- NOTE | 2017-12-04 15:17 | NUR ---
BRIGHT RED STOOL IN BSC WHEN BACK FROM PROCEDURE. FEELS DIZZY WHEN AMBULATING. BACK TO BED NOW WITH 2ND UNIT OF BLOOD INFUSING NOW.
--- NOTE | 2017-12-04 15:26 | NUR ---
BROUGHT PATIENT WARM BLANKET AND PLACED SCDs. POSSESSIONS AT BEDSIDE. NO COMPLAINTS AT THIS TIME. CALL LIGHT WITHIN REACH. WILL CONTINUE TO MONITOR.
--- NOTE | 2017-12-04 15:47 | NUR ---
PT SITTING UP IN BED TALKING WITH . PT STATES HE HAS NO NEEDS AT THIS TIME. INFORMED PT TO CALL IF HE NEEDS ANYTHING. WILL CONTINUE TO MONITOR, CALL LIGHT IS IN REACH.
--- NOTE | 2017-12-04 17:15 | NUR ---
HELPED PATIENT BACK TO BED FROM [facility], MODERATE AMOUND OF BLACK TARRY STOOL PRODUCED. SCDs PLACED. PATIENT EXPRESSED FRUSTRATION ABOUT CONDITION, THERAPEUTIC COMMUNICATION PROVIDED. BROUGHT PATIENT ICE PACK FOR ABDOMINAL DISCOMFORT. PATIENT RESTING COMFORTABLY IN BED, USING CELLPHONE. WILL CONTINUE TO MONITOR.
--- NOTE | 2017-12-04 18:50 | NUR ---
HGB IMPROVED AFTER 2 UNITS BLOOD INFUSED. NO REACTIONS. HAD TAG RED CELL SCAN THIS MORNING. HAS OPTION TO GO TO [facility] FOR SPECIFIC PROCEDURE OR HAVE COLECTOMY. UNSURE OF PATIENT'S DECISION AT THIS TIME. SBA BSC. NS @ 125. 2 UNITS PRBC ON STANDBY IF NEEDED. NPO FOR NOW. SCDs.
--- NOTE | 2017-12-04 19:00 | NUR ---
RECEIVED REPORT FROM DAY SHIFT RN. PATIENT IS RESTING IN BED. DR WATKINS IN THE RROM TO DISCUSS TREATMENT OPTIONS WITH PATIENT. PATIENT S FAMILY IS A THE BEDSIDE.
--- NOTE | 2017-12-04 21:01 | NUR ---
PATIENT ASSESMENT COMPLETED. PATIENT RATES PAIN AT A 3/10. ICE PACK PROVIDED. PATIENT ASSISTED TO THE BSC. PATIENT HAD SMALL BLOODY BM. PATIENT IS DIZZY AT THIS TIME. PATIENT ASSISTED BACK TO BED. PATIENT DENIES ANY NAUSEA. PATIENTS EVEINNG MEDICATIONS GIVEN PER ORDER. NO FURTHER NEEDS NOTED. CALL LIGHT IN REACH.
--- NOTE | 2017-12-04 21:30 | NUR ---
PATIENT ARRIVED TO ROOM 130 VIA WHEELCHAIR. TRANSFERED TO HOSPITAL BED WITH SBA, NO REPORT OF LIGHT HEADEDNESS WITH AMBULATION. NOW RESTING COMFORTABLY IN BED, BREATHING IS EVEN AND UNLABORED. VITALS STABLE, IVF INFUSING. ASSESSMENT DONE. CALL LIGHT WITHIN REACH.
--- NOTE | 2017-12-04 22:45 | NUR ---
PATIENT UP TO BEDSIDE COMODE WITH SBA. X1 BURGANDY LOOSE STOOL NOTED, PATIENT DENIES LIGHT HEADEDNESS WITH AMBULATION, HEART RATE ELEVATED WITH ACTIVITY NOTED. ONCE BACK IN BED, PATIENT HEART RATE RETURNS TO BASELINE. REPORTS CRAMPING ABDOMINAL PAIN AND SAYS "ICE PACKS SEEM TO HELP." PROVIDED ICE PACK FOR PATIENT COMFORT. PATIENT DENIES FURTHER NEEDS AT THIS TIME. CALL LIGHT WITHIN REACH.
--- NOTE | 2017-12-04 23:46 | NUR ---
IN PT ROOM TO ASSIST UP TO BSC. PT UP WITH SBA. PT VOIDED SMALL AMOUNT OF BURGANDY LOOSE STOOL. PT DENIES DIZZINESS OR UNSTEADINESS WHEN AMBULATING TO BSC. PT DENIES DIFFICULTY PASSING STOOL. PT C/O NAUSEA, STATING "I FEEL LIKE I MIGHT VOMIT" PT GIVEN 4 MG IV ZOFRAN PRN NAUSEA. PT C/O ABD PAIN, DESCRIBING TOLERABLE. PT CONTINUES TO USE ICE PACK FOR ABD PAIN. PT ENCOURAGED TO CONTINUE DRINKING BOWEL PREP. PT DENIES FURTHER REQUESTS. CALL LIGHT WITHIN REACH.
--- NOTE | 2017-12-05 02:18 | NUR ---
UPDATED DR. AGGARWAL REGARDING PATIENT'S DECREASE OF HEMOGLOBIN FROM 9.1 TO 8.1. ALSO NOTIFIED HIM REGARDING PATIENT'S CONTINUED NAUSEA DESPITE ZOFRAN ADMINISTRATION. RECEIVED ORDER FOR 12.5 MG IV PHENERGAN Q6P. ASSISTED PATIENT TO BSC, NO COMPLAINTS OF DIZZINESS. NOW RESTING IN BED COMFORTABLY AGAIN, PATIENT UNABLE TO HAVE BM AT THIS TIME. BREATHING IS EVEN AND UNLABORED. PATIENT REPORTS MILD DISCOMFORT IN ABD, ANOTHER ICE PACK GIVEN. PATIENT DENIES FURTHER NEEDS AT THIS TIME. CALL LIGHT WITHIN REACH.
--- NOTE | 2017-12-05 03:24 | NUR ---
PATIENT UP TO BEDSIDE COMODE WITH SBA. NOW RESTING IN BED AGAIN, BREATHING IS EVEN AND UNALBORED. NOTED THAT HR INCREASED TO 130 WITH ACTIVITY, QUICKLY RETURNED TO 80s WHEN AT REST. MODERATE AMOUNT OF BURGANDY STOOL NOTED IN COMODE MIXED WITH URINE, ALSO BROWN STOOL NOTED. BP IS 127/72 WITH MAP OF 86 NOTED ONCE BACK IN BED, PATIENT DENIES FEELING DIZZY. CONTINUED NAUSEA, PRN PHENERGAN GIVEN. PATIENT DENIES NEEDS AT THIS TIME. CALL LIGHT WITHIN REACH.
--- NOTE | 2017-12-05 04:45 | NUR ---
PATIENT UP TO BEDSIDE COMODE WITH SBA, DENIES DIZZINESS. LIQUID BURGANDY COLORED STOOL NOTED MIXED WITH URINE. NOW RESTING IN BED, BREATHING IS EVEN AND UNLABORED. MILDLY TACHYCARDIC WITH HR BETWEEN 100 AND 110 WITH AMBULATION, QUICKLY RETURNS TO 80s and 90s WHILE AT REST. DENIES FURTHER NEEDS AT THIS TIME. CALL LIGHT WITHIN REACH.
--- NOTE | 2017-12-05 06:28 | NUR ---
IN PT ROOM FOR USE OF BSC. PT VOIDED 275 ML OF BURGANDY COLORED MIXTURE OF URINE AND SEROSANGUINEOUS STOOL. PT DENIES ANY DIZZINESS OR DIFFICULTY VOIDING. PT'S BREATHING EVEN, UNLABORED, NO SOB. PT'S IN ROOM VISITING. FLACC SCORE OF 0, PT APPEARS COMFORTABLE NO FURTHER REQUESTS. CALL LIGHT WITHIN REACH.
--- NOTE | 2017-12-05 07:38 | NUR ---
PT UP TO BEDSIDE COMMODE, AMBULATES INDEPENDENTLY, PT HAD MODERATE AMOUNT OF LIQUID RED STOOL. PT ALERT AND ORIENTED X4, COOPERATIVE AND POLITE.
--- NOTE | 2017-12-05 07:45 | NUR ---
PT LEFT FOR SURGERY DEPARTMENT WITH GLENNA VANCE. PT ALERT AND ORIENTED X4, ABLE TO AMBULATED FROM BED TO RMIRANDA INDEPENDENTLY.
--- NOTE | 2017-12-05 10:03 | NUR ---
12/05/17 Milagro3 Suni Leija 0949- PT ARRIVES TO PACU ON 4L VIA OXYMASK. OXYGEN SAT HIGH 90'S ON THIS. PT EASILY AROUSABLE TO VOICE AND REPORTS NO NAUSEA OR PAIN. 0956- PT PASSING FLATUS. REPORTS HE FEELS LIKE HE IS WET. PT TURNED TO LEFT SIDE. NO DRAINAGE NOTED. 1001- OXYGEN TURNED DOWN TO 2L VIA OXYMASK. PT CONTINUES TO REPORTS NO NAUSEA OR PAIN. STATES, "I AM SO HAPPY I STILL HAVE A COLON".
--- NOTE | 2017-12-05 10:34 | NUR ---
pt back from pacu at 1030. pt alert and oriented x4, able to communicate clearly. pt denies pain, nausea, and sob. pt able to scoot from gurney to bed with minimal assistance.
--- NOTE | 2017-12-05 11:23 | NUR ---
IV SITES INTACT, NO REDENSS OR SWELLING, FLUIDS AND FLUSHES INFUSE EASILY, PT DENIES PAIN AT EITHER SITE. PT NOW ON ROOM AIR MARS WELL.
--- NOTE | 2017-12-05 13:20 | NUR ---
PT GIVEN JUICE, AND 7-UP. ABLE TO MARS WELL. PT ALERT AND ORIENTED X4, COOPERATIVE.
--- NOTE | 2017-12-05 16:20 | NUR ---
IV SITES INTACT, NO REDNESS OR SWELLING NOTED, PT DENIES PAIN WITH FLUSH. PT ALERT AND ORIENTED X4, COOPERATIVE AND POLITE, MARS CLEAR LIQUIDS WELL. PT DENIES NAUSEA AND SOB. PT C/O SLIGHT HEADACHE, REFUSED TYLENOL OR COFFEE, STATES HE WILL USE AND ICE PACK INSTEAD.
--- NOTE | 2017-12-05 17:11 | NUR ---
PT REQUESTED A CUP OF COFFEE FOR HIS HEADACHE AND WAS GIVEN ONE.
--- NOTE | 2017-12-05 19:59 | NUR ---
PATIENT RESTING COMFORTABLY IN BED, BREATHING IS EVEN AND UNLABORED. REPORTS MILD DISCOMFORT IN ABD, REQUESTS ICE PACK. ICE PACK GIVEN FOR COMFORT. DENIES FURTHER NEEDS. ASSESSMENT DONE, CALL LIGHT WITHIN REACH.
--- NOTE | 2017-12-05 21:20 | NUR ---
PATIENT RESTING IN BED, BREATHING IS EVEN AND UNLABORED. FLACC SCORE OF 0. CALL LIGHT WITHIN REACH.
--- NOTE | 2017-12-05 23:35 | NUR ---
PATIENT RESTING IN BED, BREATHING IS EVEN AND UNLABORED, O2 SATURATION IS 93% ON ROOM AIR. FLACC SCORE OF 0. CALL LIGHT WITHIN REACH.
--- NOTE | 2017-12-06 02:00 | NUR ---
PATIENT RESTING IN BED, BREATHING IS EVEN AND UNLABORED. FLACC SCORE OF 0. CALL LIGHT WITHIN REACH.
--- NOTE | 2017-12-06 04:52 | NUR ---
PATIENT UP TO CHAIR AND STATES "I HAVE BEEN LAYING DOWN FOR TOO LONG." PATIENT DID NOT EXPERIENCE ANY TACHYCARDIA WITH TRANSFER FROM BED TO CHAIR. NOW RESTING COMFORTABLY WITH FEET ELEVATED. REPORTS MILD DISCOMFORT IN ABD, ICE PACKS GIVEN. NO FURTHER NEEDS AT THIS TIME. CALL LIGHT WITHIN REACH.
--- NOTE | 2017-12-06 06:00 | NUR ---
PATIENT BACK TO BED, NO TACHYCARDIA OR DIZZINESS WITH ACTIVITY, NOW RESTING IN BED COMFORTABLY, BREATHING IS EVEN AND UNLABORED. DENIES NEEDS AT THIS TIME. CALL LIGHT WITHIN REACH.
--- NOTE | 2017-12-06 09:51 | NUR ---
IV SITES INTACT, NO REDNESS OR SWELLING NOTED, FLUSHES INFUSE EASILY. PT DENIES PAIN AT EITHER IV SITE. PT DENIES PAIN, NAUSEA, SOB. ABLE TO AMBULATE TO THE TOILET WITH STAND BY ASSIST, PT HR ELEVATES WITH ACTIVITY.
--- NOTE | 2017-12-06 11:41 | NUR ---
PT UP TO THE BATHROOM AT THIS TIME, NO DIZZNESS AT THIS TIME, TOLERATED AMBULATION WELL. BACK TO BED. BLOOD COMPLETED ALSO AT THIS TIME.
--- NOTE | 2017-12-06 11:46 | NUR ---
1 UNIT OF BLOOD TRANSFUSION COMPLETE, PT DENIES ANY REACTION. DENIES NAUSEA, SOB, PURITUS, AND PAIN. PT IS ALERT AND ORIENTED X4 AT THIS TIME. VITALS WNL.
--- NOTE | 2017-12-06 12:47 | NUR ---
PT UP TO THE BATHROOM C/O DIZZNESS WITH AMBULATION. EXPLAINED TO DOUG CALL LIGHT WHEN HE IS DONE IN THE BATHROOM.
--- NOTE | 2017-12-06 12:51 | NUR ---
PT HAD BM AND IT WAS YELLOW BILE IN COLOR AT THIS TIME. BACK TO BED, LAB HERE FOR 1 HOUR POST TRANSFSION.
[2017-12-06] MEDS ORDERED: LITE COAT ASPI325 MG PO (13:57)
[2017-12-06] MEDS ORDERED: FISH OIL 1,2001 EACH PO (13:57)
--- NOTE | 2017-12-06 14:20 | NUR ---
PT GIVEN DC INSTRUCTIONS. PT ALERT AND ORIENTED X4, COOPERATIVE AND POLITE. PT STATES UNDERSTANDING OF ALL INSTRUCTIONS. PT HAS CALLED SPOUSE TO COME TO COLLECT HIM FROM THE HOSPITAL. PT IS AGREEABLE TO USING WHEELCHAIR OUT TO THE FRONT OF HOSPITAL. VITALS WNL AT THIS TIME. PT DENIES PAIN, NAUSEA, SOB, AND LIGHTHEADEDNESS.
== END 2017-12-06 14:40 | disposition home or self-care (01) | DRG 378 ==
LOC: MS 18:15 → CCU 18:15
PROVIDERS: Surgery; ADMIT Internal Medicine
PROC: 30233N1 Transfusion of Nonautologous Red Blood Cells into Peripheral Vein, Percutaneous Approach (ICD-10-PCS; 2017-12-05)
PROC: 0W3P8ZZ Control Bleeding in Gastrointestinal Tract, Via Natural or Artificial Opening Endoscopic (ICD-10-PCS; principal; 2017-12-05 13:45)
DX: K57.31 Diverticulosis of large intestine without perforation or abscess with bleeding (principal); D62 Acute posthemorrhagic anemia; G43.809 Other migraine, not intractable, without status migrainosus; Z86.010 Personal history of colon polyps
CPT/HCPCS: 36415; 36430; 74018; 78278; 80048; 80053; 83735; 85018; 85025; 85610; 86850; 86900; 86901; 86920; A9560; J2370; J2550; J2704; J7030; J7120